=== PATIENT | female | born 1995 | race Caucasian/White ===

== ENCOUNTER 2016-05-09 20:07 | Emergency (ER) | payer OTHER ==
[~2016-05-09] VITALS: Ht 149.9 cm; Wt 53.0 kg
[2016-05-09 20:09] VITALS: TEMP 36.9; Ht 149.9 cm; Wt 53.0 kg
--- NOTE | 2016-05-09 20:51 | DIAGNOSTIC IMAGING REPORT ---
CT HEAD WITHOUT CONTRAST (CT) CLINICAL HISTORY: Headache status post head trauma COMPARISON STUDY: No previous studies for comparison. TECHNIQUE: Axial CT of the brain is performed from the vertex to the skull base. IV contrast was not administered for this examination. CT DOSE: 537.48 mGy.cm FINDINGS: No intra or extra-axial mass lesions are visualized. There is no CT evidence of acute cortical infarction. There is no evidence of midline shift. There is no acute hemorrhage. No calvarial fractures are visualized. There is no evidence of pathologic ventricular dilatation. There is no evidence of acute sinusitis IMPRESSION: Normal noncontrast head CT. Electronically signed by: Deep Cowart M.D. 05/09/2016 8:49 PM Dictated Date/Time: 05/09/2016 8:48 PM
[2016-05-09] MEDS ORDERED: IBUP-103 PO (21:14)
--- NOTE | 2016-05-09 21:48 | EMERGENCY ROOM VISIT NOTE ---
History Report prepared by Myrtle: Trev Jackman Under the Supervision of: Dr. Santana Collier D.O. First contact with patient: 20:14 Chief Complaint: HEADACHE Stated Complaint: BAD HEADACHES,DIZZINESS History of Present Illness The patient is a 20 year old female who presents to the Emergency Room with complaints of a constant head ache for the past six days ago. The patient states that she was cheer leading, and she was accidentally elbowed in the front left side of the head. She denies any loss of consciousness during the incident. The patient states that she has had a constant headache since, and she was seen at [facility], and they told her to come to the ED for evaluation. She states that she has been taking Tylenol, and it has been helping. Source of History: patient Onset: 6 days ago Position: head Timing: constant Modifying Factors (Relieving): tylenol Associated Symptoms: No LOC Review of Systems See HPI for pertinent positives & negatives. A total of 10 systems reviewed and were otherwise negative. Past Medical & Surgical Head injury Family History Patient reports no known family medical history. Social History Smoking Status: Never Smoker Marital Status: single Occupation Status: [employer] Current/Historical Medications Scheduled Ibuprofen Tab (Advil), 400 MG PO PRN UD Allergies Coded Allergies: No Known Allergies (Unverified , 05/09/16) Physical Exam Vital Signs Date Time Temp Pulse Resp B/P Pulse Ox O2 Delivery O2 Flow Rate FiO2 05/09/16 21:14 78 16 106/66 98 Room Air 05/09/16 20:09 36.9 86 20 103/70 99 Room Air Physical Exam CONSTITUTIONAL/VITAL SIGNS: Reviewed / noted above. GENERAL: Non-toxic in appearance. INTEGUMENTARY: Warm, dry, and [place]. HEAD: Normocephalic. EYES: without scleral icterus or trauma. ENT/OROPHARYNX: clear and moist. LYMPHADENOPATHY/NECK: Is supple without lymphadenopathy or meningismus. RESPIRATORY: Lungs clear and equal. CARDIOVASCULAR: Regular rate and rhythm. GI/ABDOMEN: Soft and nontender. No organomegaly or pulsatile mass. No rebound or guarding. Normal bowel sounds. EXTREMITIES: Warm and well perfused. BACK: No CVA tenderness. NEUROLOGICAL: Intact without focal deficits. PSYCHIATRIC: normal affect. MUSCULOSKELETAL: Normally developed with good muscle tone. Medical Decision & Procedures ER Provider Diagnostic Interpretation: CT results as stated below per my review and radiologist interpretation: CT HEAD WITHOUT CONTRAST (CT) CLINICAL HISTORY: Headache status post head trauma COMPARISON STUDY: No previous studies for comparison. TECHNIQUE: Axial CT of the brain is performed from the vertex to the skull base. IV contrast was not administered for this examination. CT DOSE: 537.48 mGy.cm FINDINGS: No intra or extra-axial mass lesions are visualized. There is no CT evidence of acute cortical infarction. There is no evidence of midline shift. There is no acute hemorrhage. No calvarial fractures are visualized. There is no evidence of pathologic ventricular dilatation. There is no evidence of acute sinusitis IMPRESSION: Normal noncontrast head CT. Electronically signed by: Deep Cowart M.D. 05/09/2016 8:49 PM Dictated Date/Time: 05/09/2016 8:48 PM ED Course 2013: Previous medical records were reviewed. The patient was evaluated in room B7. A complete history and physical examination was performed. 2152: On reevaluation, the patient is feeling better. I discussed the results and findings with the patient. She verbalized agreement of the treatment plan. She was discharged home. Medical Decision Differential includes: Acute intracranial bleed, trauma, meningitis, encephalitis, increased intracranial pressure, mass or mass effect, facial or dental infection, temporal arteritis, CVA, TIA, acute hypertensive emergency, sinusitis, carbon monoxide exposure. This is a 20-year-old female who presents to the ED from [facility]. The patient reports that she was cheerleading and was struck in the head with an elbow several days ago. She has had continued headache since that time. The patient was seen at the urgent care and sent here for CAT scan. She denies any nausea or vomiting or other symptoms. Her exam was normal. A CT scan of the brain was negative for acute disease. The patient was told the results. She is felt to be stable for discharge. Impression Primary Impression: Headache Additional Impression: Head injury Scribe Attestation The scribe's documentation has been prepared under my direction and personally reviewed by me in its entirety. I confirm that the note above accurately reflects all work, treatment, procedures, and medical decision making performed by me. Departure Information Dispostion Home / Self-Care Forms HOME CARE DOCUMENTATION FORM, IMPORTANT VISIT INFORMATION Patient Instructions [facility] Additional Instructions Follow-up with your doctor for further care and evaluation in 1-2 days. Return to the emergency department for worsening or new symptoms or any concerns. You have been examined and treated today on an emergency basis only. This is not a substitute for, or an effort to provide, complete comprehensive medical care. It is impossible to recognize and treat all injuries or illnesses in a single emergency department visit. It is therefore important that you follow up closely with your doctor. Call as soon as possible for an appointment. Take Tylenol or Motrin for pain. Problem Qualifiers
[2016-05-09 22:06] VITALS: BP 117/64; PULSE 75; O2SAT 99
== END 2016-05-09 22:07 | disposition home or self-care (01) ==
LOC: C.EDB 20:10
DX: S09.8XXA Other specified injuries of head, initial encounter (principal); R51 Headache; R42 Dizziness and giddiness; W50.0XXA Accidental hit or strike by another person, initial encounter; Y93.45 Activity, cheerleading; Y92.89 Other specified places as the place of occurrence of the external cause